=== PATIENT | female | born 1965 | race American Indian/Alaskan Native ===

== ENCOUNTER 2016-05-23 17:21 | Emergency (ER) | payer OTHER ==
[2016-05-23] MEDS ORDERED: PERCOCET 5/325 PO ONE (19:02)
--- NOTE | 2016-05-23 19:11 | Emergency Department Report ---
ED Lower Extremity HPI - General Chief Complaint: Extremity Injury, Lower Stated Complaint: PAIN IN LEFT LEG/SENT BY DR OFFICE Time Seen by Provider: 05/23/16 18:45 Source: patient Mode of arrival: Ambulatory Limitations: No Limitations - History of Present Illness Initial Comments: 50-year-old female with a past medical history of GERD, polycythemia, and venous thrombosis presents to the hospital with complaints of pain to left inguinal area. Patient states that she has had several different vascular procedures for venous thrombosis. 07/12/2014 and 09/30/2015 patient had iliac venous stenting. Patient had continued thrombosis while on aspirin. Recently patient was switched to Eliquis prior to her most recent iliac venous stenting procedure performed 05/11/2016 due to thrombosis of previous placement. Patient developed left groin pain since this procedure which is constant, rated 8/10 in intensity, described as a stabbing hard pressure. Patient states pain is worse with sitting and improves with standing. No significant leg swelling reported. - Related Data Allergies Allergy/AdvReac Type Severity Reaction Status Date / Time codeine Allergy Hives Verified 11/29/13 16:24 ketorolac tromethamine Allergy Angioedema Verified 11/29/13 16:24 [From Toradol] morphine Allergy Hives Verified 11/29/13 16:24 ED Review of Systems ROS: Stated complaint: PAIN IN LEFT LEG/SENT BY DR OFFICE Other details as noted in HPI Comment: All other systems reviewed and negative Other: Constitutional: No fevers chills Eyes: No eye pain visual changes ENT: No ear pain or throat pain Neck: Denies pain Respiratory: Denies cough wheezing shortness of breath Cardiovascular: Denies chest pain, palpitations, syncope GI: Denies abdominal pain, nausea, vomiting, diarrhea : Denies dysuria, urinary frequency, or urgency Musculoskeletal: as per hpi Skin: Denies rash, lesions, erythema Neurologic: Denies headache, numbness, weakness Psychiatric: Denies suicidal ideation, hallucinations ED Past Medical Hx - Past Medical History Previous Medical History?: Yes Hx GERD: Yes Hx of Cancer: Yes (ovarian) Additional medical history: Polycythemia, venous thrombosis requiring stenting - Surgical History Past Surgical History?: Yes Additional Surgical History: Complete hysterectomy for ovarian cancer. 01/2009, Left iliac venous stent - Social History Smoking Status: Never Smoker Substance Use Type: Alcohol, Prescribed ED Physical Exam - General Limitations: No Limitations - Other Other exam information: General: No limitations, patient is alert in no acute distress Head exam: Atraumatic, normocephalic Eyes exam: Normal appearance ENT: Moist mucous membrane, normal oropharynx Neck exam: Normal inspection, full range of motionr Respiratory exam: Clear to auscultation bilateral, no wheezes, rales, crackles Cardiovascular: Normal rate and rhythm, normal heart sounds Abdomen: Soft, nondistended, and nontender, with normal bowel sounds, no rebound, or guarding Extremity: Full range of motion normal inspection no deformity, able to Doppler left DP pulse. Minimal left ankle edema. Mild tenderness to left inguinal area Back: Normal Inspection, full range of motion, no tenderness Neurologic: Alert, oriented x3, cranial nerves intact, no motor or sensory deficit Psychiatric: normal affect, normal mood Skin: Warm, dry, intact ED Course Vital Signs 05/23/16 05/23/16 18:09 18:59 Temperature 98.3 F Pulse Rate 88 88 Respiratory 18 18 Rate Blood Pressure 125/74 Blood Pressure 117/84 [Left] O2 Sat by Pulse 98 100 Oximetry - Reevaluation(s) Reevaluation #1: 05/23/16 19:15 Percocet given for pain. Pt takes Percocet 10mg at home - Consultations Consultation #1: 05/23/16 19:06 case d/w Dr. Valdivia vascular surgeon with staff privileges here. She has history of venous thrombosis requiring venous stents. Patient does not have any arterial issues. Recommend CT pelvis IV extending down to the mid thigh for visualization of illiac venous stent 05/23/16 22:16 Case be discussed with vascular surgeon after CT resulted. Stent appears patent therefore patient will be discharged home. They will follow up with the patient as an outpatient ED Lower Extremity MDM - Lab Data Result diagrams: 05/23/16 19:14 05/23/16 19:14 Lab Results 05/23/16 05/23/16 05/23/16 Range/Units 19:14 19:14 19:14 WBC 16.1 H (4.5-11.0) K/mm3 RBC 4.60 (3.65-5.03) M/mm3 Hgb 13.7 (10.1-14.3) gm/dl Hct 40.7 (30.3-42.9) % MCV 89 (79-97) fl MCH 30 (28-32) pg MCHC 34 (30-34) % RDW 13.3 (13.2-15.2) % Plt Count 260 (140-440) K/mm3 Lymph % (Auto) 24.5 (13.4-35.0) % [place] % (Auto) 7.2 (0.0-7.3) % Eos % (Auto) 0.6 (0.0-4.3) % Baso % (Auto) 0.4 (0.0-1.8) % Lymph # 3.9 (1.2-5.4) K/mm3 [place] # 1.2 H (0.0-0.8) K/mm3 Eos # 0.1 (0.0-0.4) K/mm3 Baso # 0.1 (0.0-0.1) K/mm3 Seg Neutrophils % 67.3 (40.0-70.0) % Seg Neutrophils # 10.9 H (1.8-7.7) K/mm3 PT 12.9 (12.2-14.9) Sec. INR 0.98 (0.87-1.13) APTT 27.9 (24.2-36.6) Sec. Sodium 140 (137-145) mmol/L Potassium 3.9 (3.6-5.0) mmol/L Chloride 101.2 (98-107) mmol/L Carbon Dioxide 28 (22-30) mmol/L Anion Gap 15 mmol/L BUN 15 (7-17) mg/dL Creatinine 0.7 (0.7-1.2) mg/dL Estimated GFR > 60 ml/min BUN/Creatinine Ratio 21.42 % Glucose 117 H (65-100) mg/dL Calcium 8.9 (8.4-10.2) mg/dL Total Creatine Kinase 46 (30-135) units/L CK-MB (CK-2) 1.1 (0.0-4.0) ng/mL CK-MB (CK-2) Rel Index 2.3 (0-4) - Radiology Data Radiology results: report reviewed CT pelvis IV contrast: Mild right-sided constipation. Left iliac vein stent appears to be patent. Few tiny lymph nodes in the groin bilaterally probably reactive - Medical Decision Making Patient feeling better after treatment for pain in the ED. Patient received Percocet 5 mg tablets and 0.5 mg Dilaudid. She chronically takes Percocet 10 at home. Patient states she does not need a refill her pain medication and I explained her negative CT results and that she will be discharged home with follow-up. - Differential Diagnosis stent thrombosis, postoperative pain Critical Care Time: No Critical care attestation.: If time is entered above; I have spent that time in minutes in the direct care of this critically ill patient, excluding procedure time. ED Disposition Clinical Impression: Left inguinal pain, History of intravascular stent placement, Anticoagulant long-term use Disposition: DISCHARGED TO HOME OR SELFCARE Is pt being admited?: No Does the pt Need Aspirin: No Condition: Stable Instructions: Groin Pain (ED) Additional Instructions: Continue taking your pain medication as prescribed. Follow up with the vascular surgeon within 2-3 days. Return if symptoms worsen. Referrals: VINICIO VALDIVIA MD [Staff Physician] - 2-3 Days Time of Disposition: 22:21
[2016-05-23] MEDS ORDERED: NACL ONE (19:18)
[2016-05-23 19:31] LABS: Basophils % (Auto) 0.4 % (0.0-1.8); Eosinophils % (Auto) 0.6 % (0.0-4.3); Hematocrit 40.7 % (30.3-42.9); Hemoglobin 13.7 gm/dl (10.1-14.3); Mean Corpuscular HGB Conc 34 % (30-34); Mean Corpuscular Hemoglobin 30 pg (28-32); Mean Corpuscular Volume 89 fl (79-97); Platelet Count 260 K/mm3 (140-440); Red Cell Distribution Width 13.3 % (13.2-15.2); White Blood Count 16.1 K/mm3 (4.5-11.0)
[2016-05-23 19:41] LABS: INR 0.98 (0.87-1.13)
[2016-05-23 19:42] LABS: Partial Thromboplastin Time 27.9 Sec. (24.2-36.6)
[2016-05-23 19:52] LABS: Anion Gap 15 mmol/L; BUN/Creatinine Ratio 21.42; Blood Urea Nitrogen 15 mg/dL (7-17); Calcium 8.9 mg/dL (8.4-10.2); Carbon Dioxide 28 mmol/L (22-30); Chloride 101.2 mmol/L (98-107); Creatine Kinase 46 units/L (30-135); Creatine Kinase MB 1.1 ng/mL (0.0-4.0); Glucose 117 mg/dL (65-100); Potassium 3.9 mmol/L (3.6-5.0); Sodium 140 mmol/L (137-145)
[2016-05-23] MEDS ORDERED: DILAUDID IV ONE (21:35)
--- NOTE | 2016-05-23 21:45 | Cat Scan Report ---
FINAL REPORT PROCEDURE: CT PELVIS W CON TECHNIQUE: Computerized axial tomography of the pelvis was performed following the IV injection of iodinated nonionic contrast. HISTORY: Left groin pain COMPARISON: No prior studies are available for comparison. TECHNICAL QUALITY: Satisfactory. FINDINGS: A left iliac venous stent is seen. There appears to be normal enhancement on delayed imaging in this vessel. Bladder appears normal. No free pelvic fluid is seen. Appendix is not seen but no pericecal inflammation is seen. No inguinal hernia is seen. There may be mild right-sided constipation. A few tiny groin lymph nodes are seen bilaterally are probably reactive. No adnexal masses are seen. No fracture is seen. IMPRESSION: There may be mild right-sided constipation. A few tiny groin lymph nodes are probably reactive.
[2016-05-23 23:25] VITALS: BP 121/65
== END 2016-05-23 23:15 | disposition home or self-care (01) ==
LOC: ED 17:21
DX: R10.30 Lower abdominal pain, unspecified (principal); Z79.01 Long term (current) use of anticoagulants; Z95.5 Presence of coronary angioplasty implant and graft; K21.9 Gastro-esophageal reflux disease without esophagitis; Z85.43 Personal history of malignant neoplasm of ovary; Z90.710 Acquired absence of both cervix and uterus; Z88.5 Allergy status to narcotic agent; Z88.6 Allergy status to analgesic agent; Z88.8 Allergy status to other drugs, medicaments and biological substances
CPT/HCPCS: 36415; 72193; 80048; 82550; 82553; 85025; 85610; 85730; 96374; 99284; J1170; Q9967